=== PATIENT | female | born 1960 | race African-American/Black ===

== ENCOUNTER 2025-05-04 08:05 | Emergency (ER) | payer OTHER ==
[2025-05-04] MEDS ORDERED: Ketorolac Tromethamine 30 MG (1 mL) VIAL ONE (09:04)
== END 2025-05-04 09:09 | disposition home or self-care (01) ==
LOC: CSHERS 08:05
DX: M54.41 Lumbago with sciatica, right side (principal); I10 Essential (primary) hypertension; E11.9 Type 2 diabetes mellitus without complications
CPT/HCPCS: 96372; 99283; J1885